=== PATIENT | female | born 1945 | race African-American/Black ===

== ENCOUNTER 2017-04-11 18:07 | Observation (INO) | payer MEDICARE ==
[2017-04-11 18:45] LABS: #Lymphocytes 1.8 thou/uL (1.20-3.40); #Monocytes 0.8 thou/uL (0.11-0.59); #Neutrophils 3.2 thou/uL (1.40-6.50); %Basophils 0.2 % (0.0-1.0); %Eosinophils 0.2 % (0.0-10.0); %Lymphocytes 31.4 % (21.0-51.0); %Monocytes 13.4 % (0.0-10.0); Hemoglobin 12.7 g/dL (12.0-16.0); Mean Corpuscular HGB CONC 31.8 g/dL (32.0-36.0); Mean Platelet Volume 7.9 fL (7.4-10.4); Platelet Count 196 thou/uL (130-400); RBC Distribution Width 12.9 % (11.5-14.5); Red Blood Cell (RBC) Count 4.56 mill/uL (4.20-5.40); White Blood Cell (WBC) Count 5.9 thou/uL (4.8-10.8)
--- NOTE | 2017-04-11 19:10 | RAD ---
CHEST TWO VIEW 04/11/17 HISTORY: Cough. COMPARISON: None. FINDINGS: Lungs are clear. No pneumothorax or effusions. The cardiac silhouette and mediastinal contours are wi thin normal limits. No osseous abnormality. IMPRESSION: No acute intrathoracic abnormality. POS: [facility]
[2017-04-11 19:16] LABS: ALT (SGPT) 77 U/L (8-55); AST (SGOT) 76 U/L (5-34); Alkaline Phosphatase 117 U/L (40-150); Anion Gap 16 mmol/L (10-20); BUN (Urea Nitrogen) 9 mg/dL (9.8-20.1); Bilirubin, Total 0.3 mg/dL (0.2-1.2); Calc. Creatinine Clearance 0 mL/min (70-130); Calcium 9.7 mg/dL (7.8-10.44); Carbon Dioxide 25 mmol/L (23-31); Chloride 101 mmol/L (98-107); Estimated GFR-MDRD 66; Globulin 3.9 g/dL (2.4-3.5); Glucose 119 mg/dL (83-110); Potassium 3.5 mmol/L (3.5-5.1); Protein, Total 7.9 g/dL (6.0-8.3); Sodium 138 mmol/L (136-145)
[2017-04-11 20:41] LABS: CKMB 0.5 ng/mL (0-6.6); Troponin I Less than 0.010 ng/mL (< 0.028)
[2017-04-11 20:43] LABS: Bilirubin Negative (Negative); Blood, Urine Small (Negative); Clarity CLOUDY (Clear); Glucose, Urine (Dipstick) Negative (Negative); Leukocyte Negative (Negative); Nitrite Negative (Negative); Protein, Urine (Dipstick) Trace mg/dL (Neg-Trace); Specific Gravity, Urine 1.021 (1.002-1.036); Urobilinogen 0.2 mg/dL (0.2-1.0)
[2017-04-11 20:44] LABS: Bacteria/HPF None Seen HPF (None Seen); Hyaline Casts/LPF 0-3 HYALINE CAST LPF (0-3 Hyaline)
[2017-04-11 20:55] LABS: WBC/HPF 0-3 HPF (0-3)
[2017-04-11] MEDS ORDERED: Ketorolac Tromethamine 30 MG/ML VIAL ONE (21:01)
[2017-04-11] MEDS ORDERED: Ondansetron HCl/PF 4 MG/2 ML Vial ONE (21:01)
[2017-04-11] MEDS ORDERED: Oseltamivir 75 MG CAP PO SCH (21:45)
[2017-04-11 23:30] VITALS: BMI 35.9
[2017-04-11] MEDS ORDERED: Ondansetron HCl/PF 4 MG/2 ML Vial IVP PRN (23:30)
[2017-04-11] MEDS ORDERED: HYDROcodone/Acetaminophen 5/325 mg Tablet PO PRN ×2 (23:30)
[2017-04-11] MEDS ORDERED: Ondansetron ODT 4 MG TAB SL PRN (23:30)
[2017-04-11] MEDS ORDERED: Acetaminophen 325 MG TAB PO PRN (23:30)
[2017-04-12] MEDS ORDERED: Acetaminophen 325 MG TAB PO PRN ×2 (03:44→08:00)
[2017-04-12] MEDS ORDERED: Sodium Chloride 0.9% 1,000 ML IV SCH (08:00)
[2017-04-12] MEDS ORDERED: Mag-Al 1200 mg/1200 mg/30 ML UDCUP PO PRN (08:00)
[2017-04-12] MEDS ORDERED: traMADol HCl 50 MG TAB PO PRN (08:00)
[2017-04-12] MEDS ORDERED: HYDROcodone/Acetaminophen 5/325 mg Tablet PO PRN (08:00)
[2017-04-12] MEDS ORDERED: Loperamide HCl 2 MG CAP PO PRN (08:00)
[2017-04-12] MEDS ORDERED: Ondansetron HCl/PF 4 MG/2 ML Vial IVP PRN (08:00)
[2017-04-12] MEDS ORDERED: Ondansetron ODT 4 MG TAB PO PRN (08:00)
[2017-04-12 08:50] VITALS: BP 123/56; TEMP 98.5
[2017-04-12] MEDS ORDERED: Oseltamivir 75 MG CAP PO SCH (09:00)
--- NOTE | 2017-04-12 12:24 | HP ---
PRIMARY CARE PHYSICIAN: Dr. Ennis. HISTORY OF PRESENT ILLNESS: Ms. Garza is a very pleasant 71-year-old female that has a history of hy pothyroidism, and hyperlipidemia. She was in her usual state of health until about 2 weeks ago. She says that she began feeling extremely weak. She noticed that she was having some pain in her right eye and she originally thought it was due to some surgery she had for her cataract. She later then s aw an ENT physician and says that she was diagnosed with a sinus infection and was placed on antibiot ics. However, she got progressively weaker, says that she was having chills, could not eat, her mout h felt like it was swollen, her throat was sore, she was having a cough, which is productive of clear sputum, also was having some nausea. As a result, she came to the hospital for evaluation. Here, s he had chest x-ray done, which was essentially negative as well as the blood work done and a flu swab , which was positive for influenza B. For this reason, she is being placed in observation. REVIEW OF SYSTEMS: Constitutional: There has been subjective fever and chills. No night sweats, no weight loss. HEENT: She has had some headache, sore throat, eye pain, no adenopathy. Pulmonary: She has had a cough, which has been productive of clear sputum, no hemoptysis. Cardiovascular: She denies any chest pain. There is no shortness of breath, no PND, no orthopnea. Gastrointestinal: Sh stephanie has had no abdominal pain, some nausea, no vomiting. She says she has chronic diarrhea. Genitouri nary: No urinary frequency, hematuria, no hesitancy. Neurologic: No focal weakness, numbness or se izures. Psychiatric: No symptoms of anxiety or depression. Skin and Integument: No skin changes. No rash. PAST MEDICAL HISTORY: Hypertension as in the patient's record, but she denies having high blood pres sure, hyperlipidemia, she has a history of anxiety, hypothyroidism, depression and irritable bowel sy ndrome. PAST SURGICAL HISTORY: She has had a knee surgery and some type of bowel surgery. SOCIAL HISTORY: She is a nonsmoker, nondrinker. She is . CODE STATUS: FULL CODE. ALLERGIES: PENICILLIN, which causes an upset stomach. FAMILY HISTORY: Significant for lung cancer. CURRENT MEDICATIONS: Include vitamin C, cholestyramine 1 packet daily, Benadryl 25 mg at bedtime, Le xapro 10 mg twice a day, estrogen 0.4 mg daily, iron 325 mg daily, flurazepam 30 mg at bedtime, levot hyroxine 100 mcg daily, lorazepam 1 mg q.i.d., multivitamins daily, K-Dur 20 mEq daily, and omega 3 f atty acids 200 mg daily, vitamin B complex daily. PHYSICAL EXAMINATION: GENERAL: She is alert and oriented. She appears to be in no acute distress. She is well-developed, well-nourished. VITAL SIGNS: Blood pressure 146/63, heart rate 96, respiratory rate of 18, temperature is 99. HEENT: Pupils are equal, round, and reactive. Extraocular muscles are intact. Sclerae are anicteri c. Throat: There is no erythema, no exudates. NECK: No adenopathy, no bruits. LUNGS: Clear to auscultation. There is no wheezing, no rales. CARDIOVASCULAR: She has a normal S1, S2. I did not appreciate an S3 or S4. No murmurs, clicks or r ubs. ABDOMEN: Soft, it is nontender, nondistended. Positive for bowel sounds. No rebound, no guarding. EXTREMITIES: There is no clubbing, cyanosis, no edema. NEUROLOGICALLY: The exam is nonfocal. LABORATORY DATA AND IMAGING: CBC: White blood cell count 5.9, hemoglobin 12.7, hematocrit is 40.1, platelet count is 196. Sodium 138, potassium 3.5, chloride is 101, CO2 is 25, BUN of 9, creatinine 1 .0, glucose is 119. Chest x-ray is negative for any acute process. Her heart size is normal and the re is no infiltrates, no effusions. ASSESSMENT AND PLAN: This is a 71-year-old female that has tested positive for influenza B. She has had a poor appetite and some nausea. She has been feeling extremely weak; however, her lab results are fairly normal, she has a normal CBC. No evidence of severe renal disease. Her chest x-ray is no rmal. There is no wheezing or rhonchi on exam. The plan will be to place her in observation, give h er some IV fluids and see if she is able to tolerate breakfast and lunch and if so, then likely she c an be transitioned to further care in the outpatient setting and continue her course of Tamiflu.
--- NOTE | 2017-04-12 23:32 | DIS ---
DATE OF ADMISSION: 04/11/2017 DATE OF DISCHARGE: 04/12/2017 PRIMARY CARE PHYSICIAN: May Ennis MD DISCHARGE DISPOSITION: Home. PRIMARY DISCHARGE DIAGNOSES: 1. Influenza B. 2. Hypertension. 3. Hypothyroidism. 4. Depression. 5. History of irritable bowel syndrome. 6. History of anxiety. DISCHARGE MEDICATIONS: Tamiflu 75 mg twice a day for 5 days, vitamin B complex 1 tablet daily, K-Dur 20 mEq daily, omega-3 fatty acids 200 mg daily, multivitamin once a day, Ativan 1 mg q.i.d., levothy roxine 100 mcg daily, guaifenesin 400 mg daily, flurazepam 30 mg at bedtime, iron sulfate 325 mg david y, conjugated estrogen 0.45 mg daily, Lexapro 10 mg twice a day, Benadryl 25 mg at bedtime, cholestyr amine 1 packet daily, vitamin C 500 mg daily. CODE STATUS: FULL CODE. ALLERGIES: PENICILLIN. HOSPITAL COURSE: Ms. Garza is a pleasant 71-year-old female who came to the emergency room due to fe eling generally weak, poor appetite, cough, and some congestion. In the ER, she was found to have in fluenza B. Chest x-ray was negative for any infiltrate or signs of pneumonia. She was placed in obs ervation and given some IV fluids. Later in the morning, she started to improve as far as her sympto ms. She had a slightly low-grade temperature of 99, but her blood pressure was stable. Lab work was also relatively stable with a normal creatinine. Sodium and potassium were normal as well as her ite blood cell count, hemoglobin, and platelet count. Given this and the fact that she was improving , she was subsequently discharged and to follow up with her primary care physician in 1-2 weeks and regine baker the course of the Tamiflu.
== END 2017-04-12 13:36 | disposition home or self-care (01) ==
LOC: ERS 18:07 → 2SW 21:22
PROVIDERS: ADMIT Internal Medicine; ATTEND Internal Medicine
DX: J10.1 Influenza due to other identified influenza virus with other respiratory manifestations (principal); I10 Essential (primary) hypertension; E03.9 Hypothyroidism, unspecified; K58.9 Irritable bowel syndrome, unspecified; F32.9 Major depressive disorder, single episode, unspecified; F41.9 Anxiety disorder, unspecified; Z88.0 Allergy status to penicillin; Z79.899 Other long term (current) drug therapy; Z98.890 Other specified postprocedural states
CPT/HCPCS: 71046; 80053; 82550; 82553; 83605; 84484; 85025; 87086; 87804 ×2; 96361 ×2; 96374; 96375; 99285; G0378; 36415; 81003; 81015; J1885; J2405

== ENCOUNTER → 2017-04-17 | Outpatient (CLI) | payer MEDICARE, OTHER | LOC: BICRAD 15:33 | PROVIDERS: ATTEND Internal Medicine | DX: R05 Cough (principal) | CPT/HCPCS: 71046 ==

== ENCOUNTER 2017-05-26 10:16 | Emergency (ER) | payer MEDICARE ==
--- NOTE | 2017-05-26 12:53 | CT ---
NONCONTRAST HEAD CT: HISTORY: Fall. Post traumatic pain. Hit a flower pot and then a flower bed. COMPARISON: 01/30/2010 TECHNIQUE: A noncontrast head CT is performed from the skull base to the skull vertex. FINDINGS: No parenchymal hemorrhage. No extraaxial hematoma. No midline shift. The basilar cisterns are patent. Brain volume is age appropriate. Cortical carrera white matter differ entiation is preserved. The ventricles and sulci are patent and symmetric. The calvarium is intact. There is adequate aeration of the sinuses and mastoid air cells. IMPRESSION: No acute intracranial process. No intracranial posttraumatic sequelae. POS: [facility]
--- NOTE | 2017-05-26 13:02 | CT ---
CT CERVICAL SPINE WITHOUT CONTRAST: INDICATION: History of fall with neck pain. FINDINGS: There is mild multilevel spondylosis of the cervical spine. No definite acute fracture or subluxatio n is evident. Craniocervical junction appears within normal limits. Prevertebral soft tissues appea r within normal limits. There is mild emphysematous change involving the lung apices. There is a 2. 3 cm hypodense lesion involving the thyroid gland. IMPRESSION: 1. No acute osseous abnormality. 2. Multilevel spondylosis of the spine. 3. A 2.3 cm hypodensity in the left thyroid gland. Recommend followup thyroid ultrasound to assess the patient's age. POS: [facility]
== END 2017-05-26 12:42 | disposition home or self-care (01) ==
LOC: ERS 10:16
DX: S09.90XA Unspecified injury of head, initial encounter (principal); E03.9 Hypothyroidism, unspecified; F41.9 Anxiety disorder, unspecified; F32.9 Major depressive disorder, single episode, unspecified; W22.8XXA Striking against or struck by other objects, initial encounter; Y93.H2 Activity, gardening and landscaping
CPT/HCPCS: 70450; 72125

== ENCOUNTER 2017-10-21 13:37 | Outpatient (CLI) | payer MEDICARE | END 2017-10-21 13:38 | disposition home or self-care (01) | LOC: BICMRI 13:37 | PROVIDERS: ATTEND Internal Medicine | DX: M54.2 Cervicalgia (principal); M25.561 Pain in right knee; M25.511 Pain in right shoulder; M47.892 Other spondylosis, cervical region; S83.241A Other tear of medial meniscus, current injury, right knee, initial encounter; M22.41 Chondromalacia patellae, right knee; M71.21 Synovial cyst of popliteal space [Baker], right knee | CPT/HCPCS: 72040 ==

== ENCOUNTER 2018-08-11 08:48 | Outpatient (CLI) | payer MEDICARE ==
--- NOTE | 2018-08-11 09:53 | MRI ---
MRI Lumbar Spine Noncontrast: HISTORY: Lumbar radiculopathy COMPARISON: 08/12/2012 FINDINGS: Conus medullaris is normal in morphology and terminates at the L1 level. Incidental note of Tarlov cyst formation. Multilevel bilateral mild to moderate degenerative facet hy pertrophy. L1-2:Disc osteophyte complex with slight effacement of ventral thecal sac L2-3:Mild central canal stenosis as result of disc osteophyte formation L3-4:Broad-based disc osteophyte results in mild narrowing of central canal L4-5:Broad-based disc osteophyte and bilateral moderate facet osteoarthritis with mild central canal stenosis. There is minimal narrowing of left neural foramen. Right neural foramen is patent L5-S1:Disc osteophyte complex with slight effacement of ventral thecal sac IMPRESSION: Mild multilevel degenerative change throughout the lumbar spine.
--- NOTE | 2018-08-11 09:54 | RAD ---
XR Lumbar Spine 2 Or 3 View: 08/11/2018 12:00 AM CLINICAL INDICATION: Lumbar radiculopathy, right-sided COMPARISON: None. FINDINGS: Fracture:No fracture. Arthropathy:There is moderate multilevel facet osteoarthritis. Mild multilevel endplate degenerative changes are present Incidental findings:Multiple surgical clips overlie the abdomen and pelvis, bilaterally. Anastomotic suture material suggested at the left abdomen, as well. Correlate with surgical history. IMPRESSION: 1. Multilevel degenerative change of the lumbar spine. Should radiculopathic symptoms persist, consid er follow-up with MRI or myelogram, as necessary. Transcribed Date/Time: 08/11/2018 10:55 AM
== END 2018-08-11 08:49 | disposition home or self-care (01) ==
LOC: BICMRI 08:48
PROVIDERS: ATTEND Internal Medicine
DX: M47.26 Other spondylosis with radiculopathy, lumbar region (principal)
CPT/HCPCS: 72100; 72148

== ENCOUNTER 2018-08-19 06:47 | Outpatient (CLI) | payer MEDICARE ==
--- NOTE | 2018-08-19 07:59 | ULT ---
US Thyroid STANDARD: 08/19/2018 12:00 AM CLINICAL INDICATION: Thyroid nodules. COMPARISON: 03/14/2017 FINDINGS: Right and left thyroid lobes are normal in size and echotexture. The right thyroid lobe measures 5.4 cm and the left thyroid lobe measures 5.4 cm. There are 2 stable solid nodules in the right thyroid lobe. The largest measures 2.2 cm in size. The nodules are well-circumscribed without suspicious calcifications. There is a predominantly cystic complex nodule in the left thyroid lobe measuring 4.6 cm in greatest dimension. No cervical lymphadenopathy is noted. IMPRESSION: Stable bilateral thyroid nodules.
--- NOTE | 2018-08-19 08:42 | MMO ---
Bilateral MAMMO Bilat Screen [facility]. CLINICAL HISTORY: Patient is 73 years old and is seen for screening. The patient has the following family history of breast cancer: maternal aunt. The patient has no personal history of cancer. VIEWS: The views performed were: bilateral craniocaudal with tomosynthesis and bilateral mediolateral oblique with tomosynthesis. FILMS COMPARED: The present examination has been compared to prior imaging studies performed at [facility] on 01/01/2011, 05/11/2012, 10/27/2014, 12/12/2015 and 12/31/2016. MAMMOGRAM FINDINGS: There are scattered fibroglandular densities. There are stable benign appearing calcifications seen in both breasts. There are no suspicious masses, suspicious calcifications, or new areas of architectural distortion. IMPRESSION: THERE IS NO MAMMOGRAPHIC EVIDENCE OF MALIGNANCY. A ROUTINE FOLLOW-UP MAMMOGRAM IN 1 YEAR IS RECOMMENDED. THE RESULTS OF THIS EXAM WERE SENT TO THE PATIENT. ACR BI-RADS Category 2 - Benign finding MAMMOGRAPHY NOTE: 1. A negative mammogram report should not delay a biopsy if a dominant of clinically suspicious mass is present. 2. Approximately 10% to 15% of breast cancers are not detected by mammography. 3. Adenosis and dense breasts may obscure an underlying neoplasm.
== END 2018-08-19 06:48 | disposition home or self-care (01) ==
LOC: BICULT 06:47
PROVIDERS: ATTEND Internal Medicine
DX: Z12.31 Encounter for screening mammogram for malignant neoplasm of breast (principal); E04.2 Nontoxic multinodular goiter; Z80.3 Family history of malignant neoplasm of breast
CPT/HCPCS: 76536; 77063; 77067

== ENCOUNTER 2018-10-08 07:54 | Emergency (ER) | payer MEDICARE ==
[2018-10-08 08:37] LABS: #Basophils 0.1 thou/uL (0.0-0.2); #Eosinphils 0.1 thou/uL (0.0-0.7); #Lymphocytes 3.2 thou/uL (1.20-3.40); #Monocytes 0.6 thou/uL (0.11-0.59); #Neutrophils 5.4 thou/uL (1.40-6.50); %Basophils 0.5 % (0.0-1.0); %Eosinophils 1.5 % (0.0-10.0); %Lymphocytes 34.2 % (21.0-51.0); %Monocytes 6.4 % (0.0-10.0); %Neutrophils 57.4 % (42.0-75.0); Hemoglobin 12.5 g/dL (12.0-16.0); Mean Corpuscular HGB CONC 32.2 g/dL (32.0-36.0); Mean Corpuscular Hemoglobin 27.8 pg (27.0-31.0); Mean Corpuscular Volume 86.4 fL (78.0-98.0); Mean Platelet Volume 8.3 fL (7.4-10.4); Platelet Count 225 thou/uL (130-400); Red Blood Cell (RBC) Count 4.51 mill/uL (4.20-5.40); White Blood Cell (WBC) Count 9.5 thou/uL (4.8-10.8)
[2018-10-08] MEDS ORDERED: Ketorolac Tromethamine 30 MG/ML VIAL ONE (08:51)
[2018-10-08] MEDS ORDERED: Methocarbamol 1 GM in Sodium Chloride 0.9% 100 ML IVPB SCH (09:00)
[2018-10-08 09:02] LABS: ALT (SGPT) 31 U/L (8-55); AST (SGOT) 32 U/L (5-34); Albumin 4.2 g/dL (3.4-4.8); Alkaline Phosphatase 89 U/L (40-150); Anion Gap 13 mmol/L (10-20); BUN (Urea Nitrogen) 12 mg/dL (9.8-20.1); Bilirubin, Total 0.3 mg/dL (0.2-1.2); Calc. Creatinine Clearance 0 mL/min (70-130); Carbon Dioxide 29 mmol/L (23-31); Chloride 104 mmol/L (98-107); Estimated GFR-MDRD 78; Globulin 3.7 g/dL (2.4-3.5); Glucose 98 mg/dL (83-110); Magnesium 2.3 mg/dL (1.6-2.6); Potassium 4.4 mmol/L (3.5-5.1); Protein, Total 7.9 g/dL (6.0-8.3); Sodium 142 mmol/L (136-145)
--- NOTE | 2018-10-08 09:53 | CT ---
CT Brain WO Con History: Pain. Comparison: CT brain 2018 Findings: No acute hemorrhage or infarct. No midline shift or mass effect. The ventricular size and e xtra-axial CSF spaces are normal. Calvarium is intact. Paranasal sinuses and mastoids are clear. Impression: No acute intracranial abnormality.
--- NOTE | 2018-10-08 10:07 | CT ---
CT Abdomen Pelvis W Con History: Abdominal pain. Comparison: None. Findings: Lung bases are clear. No pericardial effusion. Diffuse hepatic steatosis. Spleen, pancreas, adrenal glands, kidneys are unremarkable. The aortoiliac contour is nonaneurysmal. No retroperitoneal periaortic adenopathy. There are sutures at the cecum as well as the transverse colon. No dilated loops of large and small bowel. No acute osseous abnormality. Impression: No acute inflammatory process within the abdomen or pelvis.
[2018-10-08 10:50] LABS: Bilirubin Negative (Negative); Blood, Urine Negative (Negative); Clarity Clear (Clear); Glucose, Urine (Dipstick) Normal (Negative); Leukocyte Negative Leu/uL (Negative); Nitrite Negative (Negative); Protein, Urine (Dipstick) Negative (Neg-Trace); Urobilinogen Normal mg/dL (Less than 2)
[2018-10-08] MEDS ORDERED: Ondansetron ODT 4 MG TAB ONE (11:20)
--- NOTE | 2018-10-11 00:53 | EKG ---
Test Reason : Blood Pressure : / mmHG Vent. Rate : 085 BPM Atrial Rate : 085 BPM P-R Int : 152 ms QRS Dur : 082 ms QT Int : 382 ms P-R-T Axes : 065 045 040 degrees QTc Int : 454 ms Normal sinus rhythm Confirmed by JEISON FLOREZ ([id number]), image editor PERNELL NAVARRO ([id number]) on 10/11/2018 12:52:40 AM Referred By: Confirmed By:JEISON FLOREZ
== END 2018-10-08 11:28 | disposition home or self-care (01) ==
LOC: ERS 07:54
DX: R51 Headache (principal); M54.5 Low back pain; G89.29 Other chronic pain; R25.1 Tremor, unspecified; R10.9 Unspecified abdominal pain; E03.9 Hypothyroidism, unspecified; F41.9 Anxiety disorder, unspecified; F32.9 Major depressive disorder, single episode, unspecified; Z79.899 Other long term (current) drug therapy
CPT/HCPCS: 36415; 70450; 74177; 80053; 81003; 83735; 84443; 85025; 93005; 96361; 96365; 96375; J1885; J2800; J3490; Q0162

== ENCOUNTER 2018-12-08 18:13 | Observation (INO) | payer MEDICARE ==
--- NOTE | 2018-12-08 19:58 | RAD ---
Chest one view HISTORY: Chest pain. COMPARISON: 12/07/2015. FINDINGS: Cardiac silhouette is magnified by projection. Pulmonary vasculature is unremarkable. Media stinum is midline. No lobar consolidation or evidence of pneumothorax. IMPRESSION: No active cardiopulmonary abnormalities are demonstrated.
[2018-12-08 20:08] LABS: #Eosinphils 0.2 thou/uL (0.0-0.7); #Lymphocytes 3.2 thou/uL (1.20-3.40); #Monocytes 0.7 thou/uL (0.11-0.59); #Neutrophils 6.3 thou/uL (1.40-6.50); %Basophils 0.4 % (0.0-1.0); %Lymphocytes 30.8 % (21.0-51.0); %Monocytes 6.5 % (0.0-10.0); %Neutrophils 60.2 % (42.0-75.0); Mean Corpuscular HGB CONC 33.1 g/dL (32.0-36.0); Mean Corpuscular Volume 84.7 fL (78.0-98.0); Mean Platelet Volume 8.1 fL (7.4-10.4); Platelet Count 196 thou/uL (130-400); RBC Distribution Width 12.9 % (11.5-14.5); Red Blood Cell (RBC) Count 4.27 mill/uL (4.20-5.40); White Blood Cell (WBC) Count 10.5 thou/uL (4.8-10.8)
[2018-12-08] MEDS ORDERED: Lidocaine Viscous Sol 2% 15 ml UD Cup ONE (20:19)
[2018-12-08] MEDS ORDERED: Mag-Al 1200 mg/1200 mg/30 ML UDCUP ONE (20:19)
[2018-12-08] MEDS ORDERED: Pantoprazole 40 MG VIAL ONE (20:19)
[2018-12-08 20:31] LABS: ALT (SGPT) 28 U/L (8-55); AST (SGOT) 24 U/L (5-34); Alkaline Phosphatase 87 U/L (40-150); Anion Gap 9 mmol/L (10-20); BUN (Urea Nitrogen) 11 mg/dL (9.8-20.1); Bilirubin, Total 0.2 mg/dL (0.2-1.2); Calc. Creatinine Clearance 0 mL/min (70-130); Calcium 9.2 mg/dL (7.8-10.44); Carbon Dioxide 31 mmol/L (23-31); Chloride 105 mmol/L (98-107); Estimated GFR-MDRD 90; Globulin 2.9 g/dL (2.4-3.5); Glucose 93 mg/dL (83-110); Lipase 32 U/L (8-78); Potassium 3.8 mmol/L (3.5-5.1); Protein, Total 6.9 g/dL (6.0-8.3); Sodium 141 mmol/L (136-145)
[2018-12-08] MEDS ORDERED: Aspirin 325 MG TAB ONE (21:28)
[2018-12-08 23:42] LABS: Troponin I Less than 0.010 ng/mL (< 0.028)
[2018-12-09 02:51] LABS: Cardiac Risk 1.9 (Less than 4.5)
[2018-12-09 02:55] LABS: Troponin I Less than 0.010 ng/mL (< 0.028)
[2018-12-09] MEDS ORDERED: Acetaminophen 325 MG TAB PO PRN (03:10)
[2018-12-09] MEDS ORDERED: Ondansetron ODT 4 MG TAB PO PRN (07:57)
[2018-12-09] MEDS ORDERED: Nitroglycerin 0.4 MG TAB (25 Tab Bottle) PO PRN (07:57)
[2018-12-09] MEDS ORDERED: Ondansetron PF 4 MG/2 ML Vial IVP PRN (07:57)
[2018-12-09] MEDS: Lorazepam 1 MG TAB PO SCH ×3 (08:25→20:23)
[2018-12-09 08:46] LABS: Free T4 (Free Thyroxine) 0.82 ng/dL (0.70-1.48); Thyroid Stimulating Hormone 1.9511 uIU/mL (0.35-4.94)
[2018-12-09] MEDS ORDERED: ATROPINE PO SCH (09:00)
[2018-12-09] MEDS ORDERED: SCOP PO SCH (09:00)
[2018-12-09] MEDS ORDERED: Aspirin 325 MG TAB PO SCH (09:00)
[2018-12-09] MEDS ORDERED: DONNATAL PO SCH (09:00)
[2018-12-09] MEDS ORDERED: PHENOBARB PO SCH (09:00)
[2018-12-09] MEDS ORDERED: Non-Formulary Item 1 EACH (Cholestyramine (With Sugar) [Cholestyramine Packet] 1 PACKET) PO SCH (09:00)
[2018-12-09] MEDS ORDERED: HYOSCY PO SCH (09:00)
--- NOTE | 2018-12-09 11:15 | NM ---
EXAM: Nuclear medicine cardiac SPECT with EF and wall motion: HISTORY: Chest pain Protocol: Exam was performed using Lexiscan protocol. The patient is injected with28.6 millicuries of technetium 99m sestamibi intravenously for stress chad ges. The patient is injected with9.1 millicuries of technetium 99 sestamibi intravenously for resting imag es. Multiple SPECT images are performed in the short axis, vertical long axis, and horizontal long axis. FINDINGS: No scan evidence for infarct or ischemia. TID:1.24 LHR:0.32 EDV:67 mL EF:74% Wall motion:Normal IMPRESSION: No scan evidence for infarct or ischemia or other acute process
[2018-12-09] MEDS: Levothyroxine Sodium 100 MCG TAB PO SCH (11:22)
[2018-12-09] MEDS: Potassium Chloride 20 MEQ TAB PO SCH (11:22)
[2018-12-09] MEDS: Pantoprazole 40 MG VIAL IVP SCH (11:23)
[2018-12-09] MEDS: Enoxaparin Sodium 40 MG/0.4 ML SYRINGE SC SCH (11:24)
[2018-12-09] MEDS: Cholestyramine/Aspartame 4 gm Packet PO SCH ×2 (11:24→22:24)
[2018-12-09] MEDS ORDERED: ADENOSINE 60 MG/20 ML VIAL ONE (12:23)
[2018-12-09 14:16] VITALS: BMI 38.5
--- NOTE | 2018-12-09 15:02 | HP ---
PRIMARY CARE PHYSICIAN: May Ennis MD CHIEF COMPLAINT: Chest pain. HISTORY OF PRESENT ILLNESS: Ms. Garza is a 73-year-old female with past medical history of hypothyroidism, anxiety and depression, who had presented to [facility] late last night due to worsening chest pain. She states that the pain started yesterday afternoon. She states that she had gotten up and had tried to walk it off, she states that the pain was slightly improved. She states that she has also had this pain in the past and it was due to her underlying anxiety. She states that she had taken home dose of lorazepam, which actually did not help at this time. She states that this pain was worse than before. She states that she had gone to the store with a family member and had stated that the pain was quite persistent. She states that after the store, she had returned home and had laid down to take a nap. She states that when she woke up, the pain was quite worse and that is when she brought in to be seen in the ED worried. She states that she is currently under the care of a local psychiatrist, Dr. Del Angel who has been adjusting some of her home medications for her underlying anxiety and depression. She states that she used to take Lexapro, however, this would put her in an acute attack. Therefore, this was changed and her lorazepam dose was recently increased. She had denied any fever, chills, headache, blurred vision, dizziness, any palpitations or shortness of breath along with abdominal pain, nausea, or vomiting. She states that the pain is substernal and even on the left side of her chest that had radiated straight through her back, and she had actually described this as more of a pressure-like feeling. In the ED, she was given a GI cocktail, which she states did little to nothing for her. She was also given IV dose of Protonix, which did seem to help slightly. However, she is still having that pressure-like feeling in her chest. Serial troponins were drawn and found to be negative thus far x4, and her BNP was also normal at less than 10. TSH and T4 were drawn due to her history of hypothyroidism, however, these were within normal limits. Her last stress test was back in 2015, which showed no evidence of ischemia at that time and she states that she has not had any recent heart workup since. Therefore, this is ordered and pending at this time. REVIEW OF SYSTEMS: All other systems reviewed and found to be negative unless mentioned in the HPI. PAST MEDICAL HISTORY: Hypothyroidism. PAST SURGICAL HISTORY: Right knee ACL reconstruction, appendectomy, cholecystectomy, hysterectomy, and thyroidectomy. PSYCHIATRIC HISTORY: Includes anxiety and depression. SOCIAL HISTORY: The patient denies alcohol, tobacco, or illicit drug use. KNOWN ALLERGIES: Penicillins and codeine. CURRENT HOME MEDICATIONS: 1. Levothyroxine 100 mcg oral daily. 2. Lorazepam 1 mg p.o. t.i.d. 3. 16.2 mg p.o. t.i.d. 4. Potassium chloride 20 mEq p.o. daily. 5. Zolpidem 5 mg p.o. at bedtime. 6. Multivitamin 1 tablet oral daily. 7. Vitamin B complex one capsule oral daily. 8. Cholestyramine 4 g packet b.i.d. 9. Estrogen conjugated 0.4 mg p.o. daily. 10. Ascorbic acid 500 mg p.o. daily. PHYSICAL EXAMINATION: VITAL SIGNS: BP 142/62, pulse 82, respiration 18, temperature 98, O2 saturation 96% on room air. GENERAL: The patient is awake, alert, and oriented x3. She is currently sitting up in bed and in no acute distress at this time. HEENT: Atraumatic and normocephalic. Pupils are round and reactive to light. Extraocular muscles are intact. Moist mucous membranes noted. NECK: Soft and supple. Trachea is midline. CARDIOVASCULAR: Positive S1 and S2. Regular rate and rhythm. No murmur auscultated. RESPIRATORY: Clear to auscultation bilaterally. No wheezes, rales, or rhonchi. ABDOMEN: Soft and nontender. Bowel sounds present. MUSCULOSKELETAL: Strength 5+ bilaterally in upper and lower extremities. Moves all extremities equally. Pedal and radial pulses are 2+ bilaterally. No edema noted. NEUROLOGIC: Cranial nerves 2 through 12 grossly intact. No focal deficits noted. Speech intact and normal. Gait, not assessed. SKIN: Warm, dry, and intact. No rashes. No ulceration noted. PSYCHIATRIC: Good mood and affect. However, she appears to be quite anxious at times. LABORATORY DATA: WBC 10.5, RBC 4.27, hemoglobin 12.0, platelet 196. Sodium 141, potassium 3.8, anion gap 9, BUN 11, creatinine 0.76, estimated GFR 90, glucose 93, AST 24, ALT 28. Troponin less than 0.010 x4. BNP less than 10. Lipase 32. Triglycerides 93, cholesterol 87, LDL 23, HDL 43. Free T4 is 0.82, TSH 1.9511. DIAGNOSTIC IMAGING: Portable chest x-ray showed no acute cardiopulmonary abnormalities. ASSESSMENT AND PLAN: 1. Chest pain. This appears to be noncardiac in nature. However, we will order a cardiac stress test to rule out acute coronary syndrome at this time. Her serial troponins are negative x4 and BNP is normal at less than 10. 2. History of anxiety and depression. Continue home regimen at this time and monitor closely. 3. Hypothyroidism. Continue home Synthroid dose. Her T4 and TSH are actually within normal limits. 4. Deep venous thrombosis and gastrointestinal prophylaxis. 5. Code status, full code. 6. Surrogate decision maker is her spouse, Alfred. DISPOSITION: Pending further workup and clinical findings, the patient will likely be discharged home in the next 1 to 2 days. Job ID: [id number]
[2018-12-09] MEDS ORDERED: Lidocaine 2% Viscous Solution 10 ML, Aluminum & Magnesium Hydroxide 30 ML SSW SCH (15:30)
[2018-12-09] MEDS ORDERED: Zolpidem Tartrate 5 MG TAB PO SCH (21:00)
[2018-12-10] MEDS: Levothyroxine Sodium 100 MCG TAB PO SCH (06:37)
[2018-12-10 08:19] VITALS: BP 130/66; TEMP 98.3
[2018-12-10] MEDS: Lorazepam 1 MG TAB PO SCH (09:11)
[2018-12-10] MEDS: Enoxaparin Sodium 40 MG/0.4 ML SYRINGE SC SCH (09:11)
[2018-12-10] MEDS: Pantoprazole 40 MG VIAL IVP SCH (09:12)
[2018-12-10] MEDS: Potassium Chloride 20 MEQ TAB PO SCH (09:12)
[2018-12-10] MEDS: Cholestyramine/Aspartame 4 gm Packet PO SCH (09:12)
[2018-12-10 10:10] LABS: #Eosinphils 0.1 thou/uL (0.0-0.7); #Lymphocytes 4.6 thou/uL (1.20-3.40); #Monocytes 0.6 thou/uL (0.11-0.59); #Neutrophils 5.6 thou/uL (1.40-6.50); %Basophils 0.4 % (0.0-1.0); %Eosinophils 1.3 % (0.0-10.0); %Lymphocytes 41.8 % (21.0-51.0); %Monocytes 5.9 % (0.0-10.0); %Neutrophils 50.7 % (42.0-75.0); Hemoglobin 13.1 g/dL (12.0-16.0); Mean Corpuscular HGB CONC 32.5 g/dL (32.0-36.0); Mean Corpuscular Hemoglobin 27.4 pg (27.0-31.0); Mean Corpuscular Volume 84.3 fL (78.0-98.0); Mean Platelet Volume 8.1 fL (7.4-10.4); Platelet Count 253 thou/uL (130-400); RBC Distribution Width 12.8 % (11.5-14.5); Red Blood Cell (RBC) Count 4.78 mill/uL (4.20-5.40)
[2018-12-10 10:30] LABS: Anion Gap 13 mmol/L (10-20); BUN (Urea Nitrogen) 11 mg/dL (9.8-20.1); Calc. Creatinine Clearance 93 mL/min (70-130); Calcium 9.7 mg/dL (7.8-10.44); Carbon Dioxide 26 mmol/L (23-31); Chloride 103 mmol/L (98-107); Estimated GFR-MDRD 84; Glucose 110 mg/dL (83-110); Potassium 3.6 mmol/L (3.5-5.1); Sodium 138 mmol/L (136-145)
--- NOTE | 2018-12-11 11:05 | SS ---
DATE OF ADMISSION: 12/08/2018 DATE OF DISCHARGE: 12/10/2018 HOSPITAL COURSE: This patient was admitted on 12/09/2018 for chest pain that started the day before her presentation to the emergency room. She tried to get up and walk it off unsuccessfully, and since the pain persistent, she presented to our emergency room, she ruled out by cardiac enzymes and underwent a nuclear study that was negative for heart disease. Today, she feels very well and ready to go home. During the night, she did have some discomfort, but this was relieved by giving her a Triple Mix. The patient will be discharged home today to follow the primary care physician in a couple of weeks. She is to resume her home medications. PHYSICAL EXAMINATION: GENERAL: She is awake, alert, and oriented, does not appear in stress. VITAL SIGNS: Her blood pressure is 130/66, heart rate of 87, temperature is 98.3, and saturating 96% on room. HEENT: Nontraumatic, normocephalic. Pupils are equally reactive. Extraocular movements are intact. Nonicteric sclerae. Well injected conjunctivae. Oral mucosa is normal. Nasal mucosa is normal. NECK: Supple. No adenopathy. No mass. Thyroid is not palpable. Trachea is midline. No supraclavicular lymphadenopathy. HEART: S1 and S2. Regular. No murmurs. No gallops. No frictional rubs. No displacement of PMI. LUNGS: Clear to auscultation bilaterally. No wheezes, rhonchi, or crackles. ABDOMEN: Bowel sounds are positive. Nontender abdomen. No hepatosplenomegaly. EXTREMITIES: No lower extremity edema. No cyanosis. NEUROLOGIC: Cranial nerves 2 through 12 within normal limits. Normal motor function. Normal sensory function and reflexes. LABORATORY DATA: Blood work shows a WBC of 11, hemoglobin of 13.1, platelets . Sodium of 138, potassium 3.6, creatinine 0.8. Troponin less than 0.01. ASSESSMENT AND PLAN: This is a 73-year-old female patient who had an episode of chest pain that persisted, but her nuclear study was negative for cardiac ischemia. Her chest pain is noncardiac, most likely it is gastrointestinal related. Since she did improve with a Triple Mix, and she is on Protonix at home, the patient to resume her medication. More than 30 minutes was spent to discharge this patient. Job ID: [id number]
== END 2018-12-10 12:22 | disposition home or self-care (01) ==
LOC: ERS 18:13 → 2SW 23:56
PROVIDERS: ADMIT Hospitalist; ATTEND Hospitalist
DX: R07.9 Chest pain, unspecified (principal); E03.9 Hypothyroidism, unspecified; F41.8 Other specified anxiety disorders; F32.9 Major depressive disorder, single episode, unspecified; Z88.0 Allergy status to penicillin; Z88.5 Allergy status to narcotic agent; Z79.899 Other long term (current) drug therapy
CPT/HCPCS: 71045; 78452; 80048; 80053; 80061; 83690; 83880; 84439; 84443; 84484 ×3; 85025 ×2; 93005; 93017; 96374; 97139; 99285; A9500; G0378 ×3; 36415; C9113; J0153; J1650

== ENCOUNTER 2018-12-30 09:40 | Outpatient (CLI) | payer MEDICARE ==
--- NOTE | 2018-12-30 11:00 | MRI ---
Brain MRI without contrast: 12/30/2018 COMPARISON: None HISTORY: Right hand and right arm tremors TECHNIQUE: Multiplanar multisequence MR imaging of the brain obtained without contrast FINDINGS: The diffusion weighted imaging demonstrates no evidence for acute infarction. The axial gradient echo imaging demonstrates no evidence for intracranial hemorrhage. The imaged paranasal sinuses and mastoid air cells appear unremarkable. Arterial flow voids at the axial level of the skull base appear unremarkable on the T2-weighted imagi ng. No midline shift or mass effect is seen. No ventricular enlargement is noted. There are a few subcentimeter scattered foci of increased T2 and FLAIR signal within the periventricu lar and deep white matter. Regional bone marrow signal intensity appears within normal limits. The parotid gland is mildly prominent for a patient of this age, measuring 7-8 mm in craniocaudal dim ension, demonstrating a superior convex configuration. If there are symptoms referable to the pituitary gland, a follow-up MRI with and without contrast utilizing a pituitary mass protocol is sug gested. IMPRESSION: Mild prominence of the pituitary gland as detailed above. No evidence for acute infarctio n or intracranial hemorrhage. Mild small vessel disease. Transcribed Date/Time: 12/30/2018 12:46 PM
== END 2018-12-30 09:41 | disposition home or self-care (01) ==
LOC: BICMRI 09:40
PROVIDERS: ATTEND Physician Assistant
DX: H53.8 Other visual disturbances (principal); R51 Headache; R42 Dizziness and giddiness; G93.89 Other specified disorders of brain
CPT/HCPCS: 70551

== ENCOUNTER 2019-01-04 21:16 | Emergency (ER) | payer MEDICARE ==
[2019-01-04 21:57] LABS: #Eosinphils 0.3 thou/uL (0.0-0.7); #Monocytes 0.9 thou/uL (0.11-0.59); #Neutrophils 8.5 thou/uL (1.40-6.50); %Basophils 0.3 % (0.0-1.0); %Eosinophils 1.9 % (0.0-10.0); %Lymphocytes 29.3 % (21.0-51.0); %Monocytes 6.3 % (0.0-10.0); %Neutrophils 62.2 % (42.0-75.0); Hemoglobin 12.6 g/dL (12.0-16.0); Mean Corpuscular HGB CONC 32.5 g/dL (32.0-36.0); Mean Corpuscular Hemoglobin 27.6 pg (27.0-31.0); Platelet Count 240 thou/uL (130-400); RBC Distribution Width 12.8 % (11.5-14.5); Red Blood Cell (RBC) Count 4.57 mill/uL (4.20-5.40); White Blood Cell (WBC) Count 13.6 thou/uL (4.8-10.8)
[2019-01-04 22:02] LABS: ALT (SGPT) 28 U/L (8-55); AST (SGOT) 26 U/L (5-34); Albumin 4.1 g/dL (3.4-4.8); Alkaline Phosphatase 109 U/L (40-110); Anion Gap 12 mmol/L (10-20); BUN (Urea Nitrogen) 10 mg/dL (9.8-20.1); Bilirubin, Total Less than 0.2 mg/dL (0.2-1.2); Calc. Creatinine Clearance 0 mL/min (70-130); Calcium 9.3 mg/dL (7.8-10.44); Carbon Dioxide 25 mmol/L (23-31); Chloride 105 mmol/L (98-107); Estimated GFR-MDRD 89; Globulin 3.7 g/dL (2.4-3.5); Glucose 104 mg/dL (83-110); Potassium 3.4 mmol/L (3.5-5.1); Protein, Total 7.8 g/dL (6.0-8.3); Sodium 139 mmol/L (136-145)
[2019-01-04 22:29] LABS: CK (CPK) 72 U/L (29-168); Lipase 36 U/L (8-78)
--- NOTE | 2019-01-04 23:05 | RAD ---
RADIOGRAPH CHEST 1 VIEW: DATE: 01/04/2019 HISTORY: 73-year-old female with chest pain FINDINGS: There are no airspace densities, pulmonary edema, pneumothorax, or cardiomegaly. IMPRESSION: No acute cardiopulmonary findings.
[2019-01-04] MEDS ORDERED: Lorazepam 2 MG/ML VIAL ONE (23:13)
[2019-01-04 23:36] LABS: Troponin I 0.013 ng/mL (< 0.028)
--- NOTE | 2019-01-08 15:26 | EKG ---
Test Reason : Blood Pressure : / mmHG Vent. Rate : 086 BPM Atrial Rate : 084 BPM P-R Int : 000 ms QRS Dur : 094 ms QT Int : 372 ms P-R-T Axes : 000 044 019 degrees QTc Int : 445 ms Normal sinus rhythm Confirmed by CASS TELLEZ, MILAGRO ([id number]), publishing editor PERNELL NAVARRO ([id number]) on 01/08/2019 3:25:55 PM Referred By: Confirmed By:MILAGRO ODELL MD
== END 2019-01-04 23:54 | disposition home or self-care (01) ==
LOC: ERS 21:16
DX: F41.9 Anxiety disorder, unspecified (principal); E03.9 Hypothyroidism, unspecified; F32.9 Major depressive disorder, single episode, unspecified; Z79.899 Other long term (current) drug therapy
CPT/HCPCS: 36416; 71045; 80053; 82550; 83690; 83880; 84484; 85025; 93005; 96372; J2060

== ENCOUNTER 2019-01-21 08:27 | Outpatient (CLI) | payer MEDICARE ==
--- NOTE | 2019-01-21 14:04 | NM ---
NUCLEAR MEDICINE BRAIN IMAGING HISTORY: Tremors COMPARISON: None TECHNIQUE: A nuclear medicine tomographic scan was performed using 4.5 mCi of I-123 Ioflupane. FINDINGS: There is comma shaped uptake uptake of the radiopharmaceutical in both basal ganglia. IMPRESSION: Normal exam.
== END 2019-01-21 08:28 | disposition home or self-care (01) ==
LOC: NM 08:27
PROVIDERS: ATTEND Psychiatry & Neurology Neurology
DX: R25.1 Tremor, unspecified (principal)
CPT/HCPCS: 78607; A9584

== ENCOUNTER 2019-02-18 12:14 | Outpatient (CLI) | payer MEDICARE ==
--- NOTE | 2019-02-18 13:53 | MRI ---
BRAIN MRI WITH AND WITHOUT CONTRAST: HISTORY: Pituitary gland enlargement. Headaches. COMPARISON: 12/30/2018. FINDINGS: Hemorrhage: No hemorrhage. Calvarium: Appropriate T1 marrow signal intensity. Midline brain parenchyma: Unremarkable, Cerebrum:No parenchymal mass, mass effect or midline shift. Brain volume is age-appropriate. Cortical carrera-white matter differentiation is preserved. No significant T2 or FLAIR white matter hyperintensities. Ventricles: No evidence of hydrocephalus. Sinuses and mastoid air cells: Adequate aeration. Diffusion: Central arterial flow is maintained. Absent restricted diffusion. Postcontrast images: No pathologic enhancement of the brain parenchyma. Pituitary MRI: There is a T1 hypointense, T2 isointense focus along the left aspect of the sella. Postcontrast image s demonstrate delayed focus of heterogeneous enhancement. This lesion measures 0.9 cm mediolateral by 0.9 cm anterior-posterior by 0.9 cm cranial caudal. Pituitary adenoma is favored. No significant m ass effect or deviation of the pituitary stalk. No significant mass effect upon the optic chiasm or prechiasmatic optic nerves. Flow voids of the cavernous carotid arteries are maintained. 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 Neurosurgical consultation is recommended. Transcribed Date/Time: 02/18/2019 1:56 PM
[2019-02-18] MEDS ORDERED: Magnevist 469MG/ML 20 ML VIAL ONE (15:37)
== END 2019-02-18 12:15 | disposition home or self-care (01) ==
LOC: BICMRI 12:14
PROVIDERS: ATTEND Internal Medicine
DX: E23.6 Other disorders of pituitary gland (principal)
CPT/HCPCS: 70553; 82565; A9579

== ENCOUNTER 2019-12-21 08:18 | Outpatient (CLI) | payer MEDICARE ==
--- NOTE | 2019-12-21 09:49 | MRI ---
BRAIN MRI WITH AND WITHOUT CONTRAST: HISTORY: Follow-up pituitary tumor. No new symptoms. COMPARISON: 12/30/2018, 02/18/2019. FINDINGS: Brain MRI: Hemorrhage: No parenchymal hemorrhage or extra-axial hematoma. Calvarium: Appropriate T1 marrow signal intensity. Midline brain parenchyma: Unremarkable. Cerebrum:No parenchymal mass, mass effect or midline shift. Brain volume, age-appropriate. Cortical g ray-white white matter differentiation is preserved. T2 and FLAIR white matter hyperintensities are minimal and felt to be due to chronic small vessel change. Ventricles: No evidence of hydrocephalus. Sinuses and mastoid air cells: Adequate aeration Diffusion: Central arterial flow is maintained. Absent restricted diffusion. Postcontrast images: No pathologic enhancement of the brain parenchyma. Pituitary MRI: Redemonstration of a T2 isointense focus with associated heterogeneous enhancement that occupies the left aspect of the pituitary gland. Currently, this mass measures 1.1 cm x 0.6 x 0.9 cm. There is minimal convexity. There is mass effect upon the left optic chiasm and prechiasmatic optic nerve. The adjacent carotid flow void is maintained. There is no significant deviation of the pituitary stalk. Previously, this mass measured 0.6 x 0.9 x 0.8 cm. The degree of mass effect upon the left opt ic nerve has developed sine the previous exam. IMPRESSION: Slight interval increase in size of a left sellar mass, compatible with macroadenoma. There is some m ass effect upon the left optic chiasm and prechiasmatic optic nerve. Correlate with ophthalmologic evaluation. Transcribed Date/Time: 12/21/2019 10:08 AM
[2019-12-21] MEDS ORDERED: Magnevist 469MG/ML 20 ML VIAL ONE (15:10)
== END 2019-12-21 08:19 | disposition home or self-care (01) ==
LOC: BICMRI 08:18
PROVIDERS: ATTEND Neurological Surgery
DX: D35.2 Benign neoplasm of pituitary gland (principal); G93.89 Other specified disorders of brain
CPT/HCPCS: 70553; 82565; A9579

== ENCOUNTER 2019-12-30 13:45 | Inpatient (IN) | payer MEDICARE, OTHER ==
[2019-12-30 14:25] LABS: #Basophils 0.1 thou/uL (0.0-0.2); #Eosinphils 0.1 thou/uL (0.0-0.7); #Lymphocytes 3.6 thou/uL (1.20-3.40); #Monocytes 0.5 thou/uL (0.11-0.59); #Neutrophils 5.3 thou/uL (1.40-6.50); %Eosinophils 1.3 % (0.0-10.0); %Lymphocytes 37.5 % (21.0-51.0); %Monocytes 5.5 % (0.0-10.0); %Neutrophils 54.8 % (42.0-75.0); Hemoglobin 13.3 g/dL (12.0-16.0); Mean Corpuscular HGB CONC 31.5 g/dL (32.0-36.0); Mean Corpuscular Hemoglobin 27.1 pg (27.0-31.0); Mean Platelet Volume 8.2 fL (7.4-10.4); Platelet Count 222 thou/uL (130-400); RBC Distribution Width 12.9 % (11.5-14.5); Red Blood Cell (RBC) Count 4.91 mill/uL (4.20-5.40); White Blood Cell (WBC) Count 9.6 thou/uL (4.8-10.8)
[2019-12-30 14:26] LABS: Bilirubin Negative (Negative); Blood, Urine Negative (Negative); Clarity Clear (Clear); Glucose, Urine (Dipstick) Normal (Negative); Ketone, Urine Negative (Negative); Leukocyte Negative Leu/uL (Negative); Nitrite Negative (Negative); Protein, Urine (Dipstick) Negative (Neg-Trace); Specific Gravity, Urine 1.003 (1.002-1.036); Urobilinogen Normal mg/dL (Less than 2); pH, Urine 6.5 (5.0-9.0)
--- NOTE | 2019-12-30 14:35 | RAD ---
XR Chest 1 View Portable HISTORY: Chest pain COMPARISON: 01/04/2019 FINDINGS: The heart size is normal. The lungs are well expanded without focal areas of consolidation, pneumothorax or pleural effusions. IMPRESSION: No radiographic evidence of acute cardiopulmonary process.
[2019-12-30] MEDS ORDERED: Acetaminophen 500 MG TAB ONE (14:44)
[2019-12-30] MEDS ORDERED: Nitroglycerin 2% Ointment 1 INCH/1 GM Packet ONE (14:44)
[2019-12-30 14:45] LABS: ALT (SGPT) 35 U/L (8-55); AST (SGOT) 32 U/L (5-34); Albumin 4.7 g/dL (3.4-4.8); Alkaline Phosphatase 101 U/L (40-110); Anion Gap 13 mmol/L (10-20); BUN (Urea Nitrogen) 9 mg/dL (9.8-20.1); Bilirubin, Total 0.2 mg/dL (0.2-1.2); Calc. Creatinine Clearance 0 mL/min (70-130); Calcium 9.9 mg/dL (7.8-10.44); Carbon Dioxide 29 mmol/L (23-31); Chloride 104 mmol/L (98-107); Estimated GFR-MDRD 86; Globulin 3.5 g/dL (2.4-3.5); Glucose 90 mg/dL (83-110); Lipase 29 U/L (8-78); Magnesium 2.1 mg/dL (1.6-2.6); Potassium 3.8 mmol/L (3.5-5.1); Protein, Total 8.2 g/dL (6.0-8.3); Sodium 142 mmol/L (136-145)
--- NOTE | 2019-12-30 15:19 | CT ---
CT of thebrain: 12/30/2019 COMPARISON:10/08/2018 HISTORY:Bilateral lower extremity weakness, severe hypertension TECHNIQUE: Serial axial CT imaging at5 mm intervals from thevertex through skull base without contras t. Findings:The visualized paranasal sinuses and mastoid air cells are well-aerated. No displaced calvar ial fracture, intracranial hemorrhage, midline shift, or mass effect. Impression:No acute findings.
--- NOTE | 2019-12-30 15:30 | PDOC.FPRHP ---
- History of Present Illness Chief Complaint: Lower extremity weakness bilaterally History of Present Illness: Patient is a 74 year old female with a history of HTN, hypothyroidism, anxiety, depression and hiatal hernia who presents to the ED with complaints of bilateral lower extremity weakness for 3 weeks. The patient denies falls or recent trauma. She reports the weakness began shortly after her synthroid medication was adjusted. She denies dizziness, lightheadedness, syncope, decreased sensation, alteration in gait, numbness, tingling, and incontinence. She also complains of a right frontal headache located above the eye described as pressure and "popping" that was progressively worsened over the past 2 weeks. During this time, she has also experienced blurry vision, intermittent chills, intermittent nausea, and mild anxiety. She notes neck pain radiation to the right shoulder related to neck tightness. She also complains of right arm pain and "heavy feeling" without erythema or tenderness. The patient reports chest pain radiating to the right shoulder and back. The patient describes the chest pain a s "tight and pokey" and notes it feels sore. She states the pain began yesterday but resolved after receiving nitro in the ED. The patient says she initially attributed her symptoms to allergies 2 weeks ago but notes symptoms did not improve as usual after starting daily nasal steroid. She denies runny nose, cough, congestion, and SOB in the past month. ED Course: In the ED, BP initially 199/133. Patient received Nitro-bid and Tylenol 1g with resolution of chest pain. BP improved to 140s/80s systolic. No tachycardia or tachypnea noted. - Allergies/Adverse Reactions Allergies Allergy/AdvReac Type Severity Reaction Status Date / Time codeine Allergy Verified 12/30/19 18:34 Penicillins Allergy Verified 12/30/19 18:34 - Home Medications Medication Instructions Recorded Confirmed Type Cholestyramine (With Sugar) 1 packet PO BID 12/07/15 12/30/19 History [Cholestyramine Packet] Lorazepam [Ativan] 0.5 mg PO PRN PRN 12/07/15 12/30/19 History Phenobarb/Hyoscy/Atropine/Scop 16.2 mg PO TID 12/07/15 12/30/19 History [ Tablet] Potassium Chloride [K-Dur] 20 meq PO DAILY 12/07/15 12/30/19 History Ascorbic Acid [Vitamin C] 500 mg PO DAILY 04/11/17 12/30/19 History Multivitamin [Daily Value] 1 tablet PO DAILY 04/11/17 12/30/19 History Vitamin B Complex 1 cap PO DAILY 04/11/17 12/30/19 History Estrogens, Conjugated [Premarin] 0.45 mg PO DAILY 12/30/19 12/30/19 History LORazepam [Lorazepam] 2 mg PO HS 12/30/19 12/30/19 History Levothyroxine Sodium [Synthroid] 1 tab PO DAILY 12/30/19 12/30/19 History - History PMHx: Hypothyroidism, anxiety, depression, hiatal hernia. Reports hx of HTN treated 20 years ago for 5 years PSHx: Appendectomy, R knee ACL, cholecystectomy, hysterectomy, thyroidectomy, partial colectomy FHx: Mother - HTN, thoracic aortic aneurysm. Father - HTN Social: Lives at home. Denies history of tobacco use. Denies ETOH and drug use. - Review of Systems General: reports: fatigue. denies: fever/chills, night sweats Eyes: denies: eye pain, vision changes ENT: denies: nasal congestion, rhinorrhea Respiratory: denies: cough, congestion, shortness of breath Cardiovascular: denies: chest pain, palpitation, edema Gastrointestinal: reports: diarrhea (chronic since partial colectomy). denies: nausea, vomiting, abdominal pain Genitourinary: reports: other (Chronic urge incontinence). denies: dysuria, polyuria Skin: denies: rashes, jaundice Musculoskeletal: reports: pain (Right arm pain). denies: tenderness, stiffness, swelling Neurological: reports: weakness. denies: numbness, syncope, seizure Psychological: reports: anxiety. denies: depression - Vital signs BP: [148/81] HR: [79] RR: [19] Tmax: [98] Pox: [100]% on [RA] Wt: [86.18kg] - Physical Exam Constitutional: NAD, awake, alert and oriented HEENT: normocephalic and atraumatic, conjunctiva clear, grossly normal vision, MMM Neck: supple, FROM, trachea midline Chest: no-tender to palpation, no lesions Heart: RRR, normal S1/S2, no murmurs/rubs/gallops, no edema Lungs: CTAB, no respiratory distress, good air movement Abdomen: soft, non-tender, bowel sounds present Musculoskeletal: normal structure, normal tone, ROM grossly normal Neurological: no focal deficit, CN II-XII intact, normal sensation, DTRs 2+ -Neurological: Strength 5/5 in all extremities, appropriate for age Skin: no rash/lesions, no jaundice Heme/Lymphatic: no unusual bruising or bleeding Psychiatric: normal mood and affect FMR H&P: Results - Labs Result Diagrams: 12/30/19 14:14 12/30/19 14:14 Lab results: WBC 9.6 thou/uL (4.8-10.8) 12/30/19 14:14 Hgb 13.3 g/dL (12.0-16.0) 12/30/19 14:14 Hct 42.2 % (36.0-47.0) 12/30/19 14:14 MCV 86.0 fL (78.0-98.0) 12/30/19 14:14 Plt Count 222 thou/uL (130-400) 12/30/19 14:14 Neutrophils % 54.8 % (42.0-75.0) 12/30/19 14:14 Sodium 142 mmol/L (136-145) 12/30/19 14:14 Potassium 3.8 mmol/L (3.5-5.1) 12/30/19 14:14 Chloride 104 mmol/L (98-107) 12/30/19 14:14 Carbon Dioxide 29 mmol/L (23-31) 12/30/19 14:14 BUN 9 mg/dL (9.8-20.1) L 12/30/19 14:14 Creatinine 0.79 mg/dL (0.6-1.1) 12/30/19 14:14 Glucose 90 mg/dL (83-110) 12/30/19 14:14 Calcium 9.9 mg/dL (7.8-10.44) 12/30/19 14:14 Total Bilirubin 0.2 mg/dL (0.2-1.2) 12/30/19 14:14 AST 32 U/L (5-34) 12/30/19 14:14 ALT 35 U/L (8-55) 12/30/19 14:14 Alkaline Phosphatase 101 U/L (40-110) 12/30/19 14:14 B-Natriuretic Peptide Less than 10.0 pg/mL (0-100) 12/30/19 14:14 Serum Total Protein 8.2 g/dL (6.0-8.3) 12/30/19 14:14 Albumin 4.7 g/dL (3.4-4.8) 12/30/19 14:14 Lipase 29 U/L (8-78) 12/30/19 14:14 Urine Ketones Negative mg/dL (Negative) 12/30/19 14:05 Urine Blood Negative (Negative) 12/30/19 14:05 Urine Nitrite Negative (Negative) 12/30/19 14:05 Ur Leukocyte Esterase Negative Aileen/uL (Negative) 12/30/19 14:05 - EKG Interpretation EKG: HR 76, NSR FMR H&P: A/P - Plan Hypertensive urgency BP elevated at 199/133 in ED, improved to 148/81 by admission. Vital signs otherwise stable. Reports hx HTN in past but has not been treated for 15 years. Daily headache and vision changes likely due to untreated chronic HTN. No evidence of end organ damage in workup. Trop neg. EKG NSR. BNP <10. -Admit to tele obs -TSH, A1C, lipid panel for risk stratification -Start amlodipine 10mg daily -Terazosin 1mg Q4H PRN for systolic BP > 160 -Stress test in am to further investigate. NPO at midnight Bilateral lower extremity weakness Reports generalized leg weakness for past 3 weeks. Exam normal and appropriate for age. CT Brain showed nothing acute. -CRP, ESR to rule out inflammatory process -CT C Spine and L spine for further investigation -PT/OT consult Right arm pain Reports R arm pain and feelings of heaviness without erythema or warmth in recent weeks. Increased risk of clots due to longstanding hx of PO estrogen therapy. -US Venous Doppler to rule out DVT -On Lovenox inpatient for DVT ppx Hypothyroidism s/p thyroidectomy Patient reports recent change in Synthroid dosing, specifics unknown. -TSH level -Continue home Synthroid Anxiety Patient reports mild anxiety at baseline. PDMP confirmed current dosing. -Continue home Lorazepam 0.5mg in morning and afternoon -Continue home Lorazepam 2g at night Depression Patient reports chronic history of MDD with intermittent need for medication. -Monitor for symptoms Chronic estrogen therapy Patient reports an estimated 20 year history of taking post-menopausal PO estrogen therapy. Denies family hx breast cancer. -Begin taper of Premarin 0.45mg daily given high risk of complications with assisted use Chronic diarrhea 2/2 partial colectomy -Continue home KCl 20mg daily Hiatal Hernia -Aware PCP: Dr. Saad Ghotra at [facility] Code: FULL DVT Ppx: Lovenox Dispo: Admit to inpatient tele. Expected LOS 1-2 days. FMR H&P: Upper Level - Plan Date/Time: 12/30/19 1530 IJayy, DO, have evaluated this patient and agree with findings/plan as outlined by music internship resident. Pertinent changes/additions are listed here. This is a 74 yo female with a pmh of HTN, HLD, anxiety, hypothyroidism, depression, IBS, who presents to the ER with a cc of lower extremity weakness and chest pressure. She states the weakness has been on going for the last three weeks and is not associated with dizziness, presyncope, or falling. The weakness is intermittent and is worse with walking. She reports that nothing makes it better. The chest pain has socrates going on for the last day and is as sociated with right arm pain and mild SOB. She states the pain starts in her neck and moves to her back. She believes it has something to do with her tension in her neck. She is on intermediate manager estrogen supplementation, no history of breast cancer. She also reports blurry vision for the last month with a headache on the right side that comes and goes. She denies a family history of breast cancer She was initially found to have SBP in the 200s but this responded well to nitroglycerin and is currently 148/81 Objective Vitals: BP 148/81, HR 79, RR 19, Temp 98.1, SpO2 100 General: NAD HEENT: MMM, AT/NC, no temporal tenderness Cardio: RRR, no murmurs, no tenderness to palpation Respiratory: CTAB, no adventitious sounds Abdominal: Soft, non-tender, BS+ MSK: Lower extremity 4-5/5 bilaterally, Upper extremity strength 5/5 Extremities: Pulses 2+ throughout Neuro: CN II-XII grossly intact, DTR 2/4 throughout, pronator drift is neg, normal proprioception A/P Hypertensive urgency -Admit to tele obs -BP initially severely elevated but no signs of end organ damage -Pt denies hx of HTN, however, we will start on amlodipine with Hytrin for PRN -Trop neg -CXR neg -Low suspicion for PE or aortic dissection based on Hx and exam -Plan for stress test in the morning Lower extremity weakness -Likely not Guillain Gaastra as it has been stable -Will obtain CT C spine and L spine -Pending CRP and ESR to check for inflammatory processes -CT brain is negative Right arm pain/heaviness -Pt is on assisted estrogen therapy -Will obtain US of arm to r/o DVT Hypothyroidism -Will check TSH -Continue home levothyroxine HLD -Continue home statin Anxiety -Pt is currently on lorazepam 0.5mg in the morning and in the afternoon, and then 2 mg in the evening. RAIL OPERATOR aware is appropriate Please see music internship note for further information and management of chronic conditions Code: Full Prophylaxis: Lovenox Family: none at bedside Fluids: SL Diet: Regular Disposition: DC in 1-2 days PCP: [facility] Addendum - Attending - Attending Attestation Date/Time: 12/31/19 4568 I personally evaluated the patient and discussed the management with Dr. Ronny Vargas yesterday evening. I agree with the History, Examination, Assessment and Plan documented above with any addition or exceptions noted below.
[2019-12-30] MEDS ORDERED: Ondansetron ODT 4 MG TAB PO PRN (16:28)
[2019-12-30] MEDS ORDERED: Ondansetron PF 4 MG/2 ML Vial IVP PRN (16:28)
[2019-12-30] MEDS ORDERED: Labetalol HCl 100 MG/20 ML VIAL SLOW IVP PRN ×2 (16:39→16:51)
[2019-12-30] MEDS ORDERED: Nitroglycerin 0.4 MG TAB (25 Tab Bottle) SL PRN (16:41)
[2019-12-30] MEDS ORDERED: Terazosin HCl 1 MG CAP PO PRN (17:27)
[2019-12-30] MEDS ORDERED: Amlodipine 10 MG TAB PO SCH (17:30)
--- NOTE | 2019-12-30 17:57 | CT ---
CT CERVICAL SPINE 12/30/19 PROVIDED CLINICAL HISTORY: Neck pain and bilateral lower extremity weakness. FINDINGS: Comparison 05/26/17. There is no evidence for fracture or traumatic subluxation. Cervical disc degenerative changes are re demonstrated, as are lower cervical and visualized thoracic facet degenerative change. There is no pr evertebral soft tissue swelling apparent. Thyroid goiter changes are redemonstrated. The visualized l marisa apices appear clear. There is no high grade central canal stenosis apparent by CT. IMPRESSION: No CT evidence for an acute process. POS: CYNTHIA
--- NOTE | 2019-12-30 18:00 | CT ---
CT LUMBAR SPINE: 12/30/19 PROVIDED CLINICAL HISTORY: Lower extremity weakness. FINDINGS: Lumbar alignment appears normal. Vertebral body heights appear preserved. There is no evidence for fr acture. Lower lumbar spine facet arthritis changes are seen. There is no evidence for high grade cent ral canal stenosis by CT. IMPRESSION: No CT evidence for an acute abnormality. POS: CYNTHIA
[2019-12-30 18:46] LABS: Hemoglobin A1c 5.4 % (4.0-6.0)
[2019-12-30] MEDS: Acetaminophen 325 MG TAB PO PRN (20:13)
[2019-12-30] MEDS: Lorazepam 1 MG TAB PO SCH (20:13)
--- NOTE | 2019-12-30 20:51 | ULT ---
RIGHT UPPER EXTREMITY VENOUS DOPPLER ULTRASOUND: 12/30/19 COMPARISON: None. HISTORY: Right arm pain, assess for DVT. TECHNIQUE: Multiplanar carrera scale sonographic imaging of the venous structures of the right upper extremity obta ined with color flow/spectral analysis/Doppler interrogation. FINDINGS: The right internal jugular vein, subclavian vein, axillary vein, brachial vein, basilic vein, cephali c vein, radial vein, and ulnar vein are patent. Deep venous structures of the right upper extremity d emonstrate normal blood flow, augmentation and compression. No evidence for DVT. IMPRESSION: No evidence for deep venous thrombosis of the right upper extremity. POS: RAMANA
[2019-12-30] MEDS: Simethicone Chewable 80 MG TAB PO PRN (21:55)
[2019-12-31] MEDS ORDERED: Sodium Chloride 0.9% 500 ML IV SCH (00:45)
[2019-12-31 05:03] VITALS: BMI 34.7
[2019-12-31 05:04] LABS: Cardiac Risk 1.9 (Less than 4.5)
[2019-12-31] MEDS: Levothyroxine Sodium 88 MCG TAB PO SCH (05:35)
[2019-12-31] MEDS: Acetaminophen 325 MG TAB PO PRN ×2 (05:38→16:59)
--- NOTE | 2019-12-31 06:28 | PDOC.FM ---
- Subjective Subjective: Patient complains of frontal headache, right arm pain and heaviness, and bilateral lower extremity weakness. She states these symptoms are unchanged from yesterday. She reports 1 episode of vomiting last pm, but denies nausea. No vision changes, chest pain, SOB, palpitations, abdominal pain and edema. She requests an allergy medication due to recent flare. She denies runny nose, cough and congestion. - Objective MAR Reviewed: Yes Vital Signs & Weight: Vital Signs (12 hours) Temp Pulse Resp BP BP BP BP 12/31/19 03:23 97.9 F 94 18 103/59 L 12/31/19 01:44 12/31/19 00:48 77 97/56 L 12/31/19 00:32 76 22 H 71/45 L 12/30/19 23:47 97.6 F 82 22 H 84/47 L 12/30/19 21:52 148/68 H 12/30/19 20:13 12/30/19 20:01 97.7 F 76 20 184/91 H 12/30/19 20:00 12/30/19 18:24 82 189/101 H Pulse Ox 12/31/19 03:23 98 12/31/19 01:44 100 12/31/19 00:48 12/31/19 00:32 100 12/30/19 23:47 100 12/30/19 21:52 12/30/19 20:13 98 12/30/19 20:01 98 12/30/19 20:00 98 12/30/19 18:24 Weight Weight 91.943 kg I&O: 12/29/19 12/30/19 12/31/19 06:59 06:59 06:59 Intake Total 1400 Balance 1400 Result Diagrams: 12/30/19 14:14 12/30/19 14:14 Phys Exam - Physical Examination Constitutional: NAD HEENT: moist MMs, sclera anicteric Neck: supple, full ROM Respiratory: no wheezing, clear to auscultation bilateral Cardiovascular: RRR, no significant murmur Gastrointestinal: soft, non-tender, positive bowel sounds Musculoskeletal: no edema, pulses present Neurological: non-focal, moves all 4 limbs Strength 5/5 Psychiatric: normal affect, A&O x 3 Skin: no rash Dx/Plan - Plan Plan: Hypertensive urgency BP elevated at 199/133 in ED, improved to 148/81 by admission. Vital signs otherwise stable. Reports hx HTN in past but has not been treated for 15 years. Daily headache and vision changes likely due to untreated chronic HTN. No evidence of end organ damage in workup. Trop neg. EKG NSR. BNP <10. HEART score: 4. -Continuously monitor on tele -Start amlodipine 10mg daily -Terazosin 1mg Q4H PRN for systolic BP > 160 until stress test completed, then change to labetalol 20mg Q4H PRN -Stress test in am. Currently NPO Bilateral lower extremity weakness likely 2/2 deconditoning Reports generalized leg weakness for past 3 weeks. Exam normal and appropriate for age. CT Brain showed nothing acute. ESR, CRP low, therefore inflammatory process unlikely. CT C-spine and L-spine showed degenerative changes but nothing severe or acute. TSH WNL. -PT/OT consult Right arm pain Reports R arm pain and feelings of heaviness without erythema or warmth in recent weeks. Increased risk of clots due to longstanding hx of PO estrogen therapy. -US Venous Doppler negative for DVT Hypothyroidism s/p thyroidectomy Patient reports recent change in Synthroid dosing, specifics unknown. TSH WNL. -Continue home Synthroid Anxiety Patient reports mild anxiety at baseline. PDMP confirmed current dosing. -Continue home Lorazepam 0.5mg in morning and afternoon -Continue home Lorazepam 2g at night Depression Patient reports chronic history of MDD with intermittent need for medication. -Monitor for symptoms Chronic estrogen therapy Patient reports an estimated 20 year history of taking post-menopausal PO estrogen therapy. Denies family hx breast cancer. -Begin taper of Premarin 0.45mg daily given high risk of complications with care home use Chronic diarrhea 2/2 partial colectomy -Continue home KCl 20mg daily Hiatal Hernia -Aware PCP: Dr. Saad Ghotra at [facility] Code: FULL DVT Ppx: Lovenox Dispo: Pending stress test results, PT/OT recs and further medical management Addendum - Attending - Attending Attestation Date/Time: 12/31/19 [id number] I personally evaluated the patient and discussed the management with Dr. Jefferson. I agree with the History, Examination, Assessment and Plan documented above with any addition or exceptions noted below.
[2019-12-31] MEDS: Lorazepam 0.5 MG TAB PO SCH ×2 (08:32→14:07)
[2019-12-31 08:35] LABS: Troponin I 0.014 ng/mL (< 0.028)
[2019-12-31] MEDS ORDERED: Amlodipine 5 MG TAB PO SCH ×2 (09:00→18:00)
[2019-12-31] MEDS ORDERED: Amlodipine 10 MG TAB PO SCH ×2 (09:00→18:00)
[2019-12-31] MEDS ORDERED: ADENOSINE 60 MG/20 ML VIAL ONE (09:21)
[2019-12-31 12:04] LABS: SARS-CoV-2 MS2 Positive; SARS-CoV-2 N Gene Negative; SARS-CoV-2 S Gene Negative; SARS-CoV-2 by NAA Not Detected (NotDetected); SARS-CoV-2 orf1ab Negative
--- NOTE | 2019-12-31 13:34 | NM ---
Nuclear medicine Cardiac myocardial perfusion SPECT Ejection fraction study Wall motion cine: DATE:12/31/2019 1:21 PM INDICATION: Chest pain history of hypertensive crisis TECHNIQUE: Number of days:1 Stress study: Technetium 99m-sestamibi (Cardiolite) dose:30.3 mCi FINDINGS: Cardiac (myocardial perfusion) SPECT No myocardial perfusion defect is demonstrated. Ejection fraction study Left ventricular EF = 69% Wall motion cine Normal wall motion and thickening IMPRESSION: Normal stress only myocardial perfusion evaluation. No myocardial perfusion defect identified.
[2019-12-31] MEDS: Potassium Chloride 20 MEQ TAB PO SCH (14:02)
[2019-12-31] MEDS: Enoxaparin Sodium 40 MG/0.4 ML SYRINGE SC SCH (14:03)
[2019-12-31] MEDS: Loratadine 10 MG TAB PO PRN (14:06)
[2019-12-31] MEDS: Simethicone Chewable 80 MG TAB PO PRN (14:06)
[2019-12-31] MEDS: Estrogens, Conjugated 0.3 MG TAB PO SCH (14:44)
[2019-12-31] MEDS ORDERED: Labetalol HCl 100 MG/20 ML VIAL SLOW IVP PRN (16:46)
[2019-12-31] MEDS: Lorazepam 1 MG TAB PO SCH (20:16)
[2020-01-01] MEDS: Levothyroxine Sodium 88 MCG TAB PO SCH (05:07)
[2020-01-01] MEDS: Acetaminophen 325 MG TAB PO PRN ×2 (05:21→12:24)
--- NOTE | 2020-01-01 05:52 | PDOC.FM ---
- Subjective Subjective: No acute overnight events. No new complaints this AM. Denies headache, chest pain, SOB, edema. Expresses concern about cost of medication, outpatient therapies. - Objective Vital Signs & Weight: Vital Signs (12 hours) Temp Pulse Resp BP BP Pulse Ox 01/01/20 04:00 98.0 F 80 23 H 142/75 H 99 01/01/20 01:07 98 12/31/19 20:00 98.5 F 85 16 140/63 98 Weight Admit Weight 91.989 kg Weight 91.172 kg I&O: 12/30/19 12/31/19 01/01/20 06:59 06:59 06:59 Intake Total 1400 1080 Output Total 1000 Balance 1400 80 Result Diagrams: 12/30/19 14:14 12/30/19 14:14 Phys Exam - Physical Examination Constitutional: NAD HEENT: moist MMs Respiratory: no wheezing, no rales, no rhonchi, clear to auscultation bilateral Cardiovascular: RRR, no significant murmur Gastrointestinal: soft, non-tender, positive bowel sounds Musculoskeletal: no edema Neurological: non-focal, moves all 4 limbs ambulating without difficulty, strength 5/5 in bilateral upper & lower ext Psychiatric: normal affect, A&O x 3 Skin: no rash Dx/Plan - Plan Plan: Hypertensive urgency BP elevated at 199/133 in ED, improved to 148/81 by admission. Vital signs otherwise stable. Reports hx HTN in past but has not been treated for 15 years. Daily headache and vision changes likely due to untreated chronic HTN. No evidence of end organ damage in workup. Trop neg. EKG NSR. BNP <10. HEART score: 4. Stress test negative 12/30. Blood pressure stable in 140s/70s on amlodipine. -Will increase to amlodipine 10 mg for better control of BP -labetalol 20mg Q4H PRN for SBP >160 Bilateral lower extremity weakness likely 2/2 deconditoning Reports generalized leg weakness for past 3 weeks. Exam normal and appropriate for age. CT Brain showed nothing acute. ESR, CRP low, therefore inflammatory process unlikely. CT C-spine and L-spine showed degenerative changes but nothing severe or acute. TSH WNL. -PT/OT consulted, appreciate recs -would benefit from HH on discharge, CM consulted Right arm pain Reports R arm pain and feelings of heaviness without erythema or warmth in recent weeks. Increased risk of clots due to longstanding hx of PO estrogen therapy. -US Venous Doppler negative for DVT Hypothyroidism s/p thyroidectomy Patient reports recent change in Synthroid dosing, specifics unknown. TSH WNL. -Continue home Synthroid Anxiety Patient reports mild anxiety at baseline. PDMP confirmed current dosing. -Continue home Lorazepam 0.5mg in morning and afternoon -Continue home Lorazepam 2g at night Depression Patient reports chronic history of MDD with intermittent need for medication. -Monitor for symptoms Chronic estrogen therapy Patient reports an estimated 20 year history of taking post-menopausal PO estrogen therapy. Denies family hx breast cancer. 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 Saad Ghotra at [facility] Code: FULL DVT Ppx: Lovenox Dispo: Likely DC to home with Addendum - Attending - Attending Attestation Date/Time: 01/01/20 3663 I personally evaluated the patient and discussed the management with Dr. Kaufman. I agree with the History, Examination, Assessment and Plan documented above with any addition or exceptions noted below.
[2020-01-01] MEDS: Potassium Chloride 20 MEQ TAB PO SCH (08:03)
[2020-01-01] MEDS: Estrogens, Conjugated 0.3 MG TAB PO SCH (08:03)
[2020-01-01] MEDS: Enoxaparin Sodium 40 MG/0.4 ML SYRINGE SC SCH (08:03)
[2020-01-01] MEDS: Lorazepam 0.5 MG TAB PO SCH ×2 (08:04→13:45)
[2020-01-01 12:12] VITALS: TEMP 97.7
[2020-01-01] MEDS: Loratadine 10 MG TAB PO PRN (12:25)
[2020-01-01 13:50] VITALS: BP 167/84
[2020-01-01] MEDS ORDERED: Amlodipine 10 MG TAB PO SCH (18:00)
--- NOTE | 2020-01-03 14:41 | DIS ---
DATE OF ADMISSION: 12/30/2019 DATE OF DISCHARGE: 01/01/2020 RESIDENT: Jacqueline Kaufman DO ADMITTING ATTENDING: Dr. El. DISCHARGE ATTENDING: Dr. El. CONSULT: None. PROCEDURES: CT brain, CT cervical spine, CT lumbar spine, nuclear stress test. PRIMARY DIAGNOSIS: Hypertensive urgency. SECONDARY DIAGNOSES: Deconditioning, hypothyroidism, anxiety, depression, chronic diarrhea, chronic estrogen therapy. DISCHARGE MEDICATIONS: 1. Potassium chloride 20 mEq p.o. daily. 2. Lorazepam 0.5 mg p.o. p.r.n. 3. tablet 16.2 mg p.o. t.i.d. 4. Cholestyramine one packet p.o. b.i.d. 5. Ascorbic acid 500 mg p.o. b.i.d. 6. Vitamin B one capsule p.o. daily. 7. Multivitamin one tablet p.o. daily. 8. Premarin 0.45 mg p.o. daily. 9. Lorazepam 2 mg p.o. at bedtime. 10. Levothyroxine 88 mcg one tablet p.o. daily. 11. Amlodipine 10 mg p.o. daily. DISCONTINUED MEDICATIONS: None. HOSPITAL COURSE: Ms. Garza is a 74-year-old female with past medical history of hypertension, hypothyroidism, anxiety, and depression, who presented to the ED with complaint of bilateral lower extremity weakness for the past three weeks. She is also complaining of arm heaviness and chest pain radiating to the right shoulder in the back, which was relieved with nitroglycerin in the ER. She was noted to be hypertensive with her initial blood pressure at 199/133. Of note, she does have a past medical history of hypertension, but has not been on any antihypertensive therapy for the past 15 years. Prior to admission, she has been having daily headaches and vision changes, which are presumed due to her untreated chronic hypertension. The patient underwent an extensive cardiac workup including troponins, EKG, and stress test, all of which were negative. Her blood pressure was initially treated with 5 mg of amlodipine with p.r.n. terazosin for systolic blood pressures over 160. However, with one dose of terazosin, she decreased her blood pressure in the 160s systolic to 80s systolic. This medication was discontinued. However, she was continued on amlodipine, which was increased to 10 mg daily for better control of her blood pressure. She also complained of bilateral lower extremity weakness throughout her admission. She was evaluated by PT and OT and aggressive OT therapy was recommended for her decreased functional mobility. She had multiple imaging studies during her admission due to this weakness, including CT of the brain, CT of the cervical spine, and CT of the lumbar spine, all of which were negative for any canal stenosis or acute finding. On admission, she also complained of some right upper extremity pain, DVT was ruled out with an ultrasound. With her blood pressure under better control and her negative cardiac workup and her symptoms of bilateral lower extremity weakness improving, the patient was discharged in stable condition to home with home health for further occupational therapy. DISPOSITION: Stable. DISCHARGE INSTRUCTIONS: 1. Location: Home. 2. Diet: Heart healthy. 3. Activity: As tolerated. 4. Followup: Follow up with PCP within one week. Job ID: [id number] [id number]
== END 2020-01-01 14:41 | disposition home health service (06) | DRG 305 ==
LOC: ERS 13:45 → 2NO 15:31
PROVIDERS: ADMIT Family Medicine; ATTEND Family Medicine
DX: I16.0 Hypertensive urgency (principal); Z20.828 Contact with and (suspected) exposure to other viral communicable diseases; F41.9 Anxiety disorder, unspecified; F32.9 Major depressive disorder, single episode, unspecified; I10 Essential (primary) hypertension; E89.0 Postprocedural hypothyroidism; K44.9 Diaphragmatic hernia without obstruction or gangrene; K52.89 Other specified noninfective gastroenteritis and colitis; R53.1 Weakness; M79.601 Pain in right arm; Z90.49 Acquired absence of other specified parts of digestive tract; Z88.0 Allergy status to penicillin; Z79.899 Other long term (current) drug therapy; Z79.890 Hormone replacement therapy; Z90.710 Acquired absence of both cervix and uterus; Z88.5 Allergy status to narcotic agent
CPT/HCPCS: 36415; 36416; 70450; 71045; 72125; 72131; 78452; 80053; 80061; 81003; 83036; 83690; 83735; 83880; 84443; 84484; 85025; 85652; 86140; 87635; 93005; 93017; A9500; J0153; J2405; U0003

== ENCOUNTER 2023-04-21 18:14 | Inpatient (IN) | payer MEDICARE, OTHER ==
[~2023-04-21 18:14] MED LIST: Iopamidol-370 76% 500 ML MDV (1 ML CHARGE) ONE
[2023-04-21] MEDS ORDERED: Morphine 4 MG/ML VIAL ONE ×2 (19:00→21:30)
[2023-04-21] MEDS ORDERED: Ondansetron PF 4 MG/2 ML Vial ONE (19:00)
[2023-04-21 19:08] LABS: #Monocytes 0.6 thou/uL (0.11-0.59); #Neutrophils 14.7 thou/uL (1.40-6.50); %Basophils 0.2 % (0.0-1.0); %Eosinophils 0.1 % (0.0-10.0); %Monocytes 3.3 % (0.0-10.0); Hematocrit 41.3 % (36.0-47.0); Hemoglobin 13.3 g/dL (12.0-16.0); Mean Corpuscular HGB CONC 32.2 g/dL (32.0-36.0); Mean Corpuscular Volume 83.9 fl (78.0-98.0); Mean Platelet Volume 10.8 fL (7.4-10.4); Platelet Count 233 10x3/uL (130-400); RBC Distribution Width 14.1 % (11.5-14.5); Red Blood Cell (RBC) Count 4.92 mill/uL (4.20-5.40)
[2023-04-21 19:36] LABS: ALT (SGPT) 24 U/L (8-55); AST (SGOT) 24 U/L (5-34); Albumin 4.7 g/dL (3.4-4.8); Alkaline Phosphatase 87 U/L (40-110); Anion Gap 15 mmol/L (10-20); BUN (Urea Nitrogen) 6 mg/dL (9.8-20.1); Bilirubin, Total 0.6 mg/dL (0.2-1.2); Calc. Creatinine Clearance 0 mL/min (70-130); Carbon Dioxide 27 mmol/L (23-31); Chloride 99 mmol/L (98-107); Estimated GFR 79; Globulin 3.9 g/dL (2.4-3.5); Glucose 124 mg/dL (83-110); Lipase 15 U/L (8-78); Potassium 3.4 mmol/L (3.5-5.1); Protein, Total 8.6 g/dL (5.8-8.1); Sodium 138 mmol/L (136-145)
[2023-04-21 19:40] LABS: Troponin I Less than 0.010 ng/mL (< 0.028)
[2023-04-21 20:57] LABS: SARS-CoV-2 NAA Rapid Test Not Detected (NotDetected)
[2023-04-21 22:10] LABS: Bacteria/HPF None Seen HPF (None Seen); Bilirubin Negative (Negative); Blood, Urine Negative (Negative); CAUTI Indications for Culture Alt mental st,lethar; Clarity Clear (Clear); Glucose, Urine (Dipstick) Normal (Negative); Ketone, Urine Negative (Negative); Leukocyte Negative Leu/uL (Negative); Nitrite Negative (Negative); Protein, Urine (Dipstick) Negative (Neg-Trace); RBC/HPF 0-3 HPF (0-3); Specific Gravity, Urine 1.019 (1.002-1.036); Squamous Epithelial 0-3 HPF (0-3); Urobilinogen Normal mg/dL (Less than 2); WBC/HPF 0-3 HPF (0-3); pH, Urine 7.5 (5.0-9.0)
[2023-04-21 22:12] LABS: Urine Culture Reflex No No
[2023-04-21 22:43] LABS: Lactic Acid 1.4 mmol/L (0.5-2.2)
[2023-04-21 23:50] VITALS: BMI 35.7
[2023-04-22] MEDS ORDERED: Ondansetron PF 4 MG/2 ML Vial IVP PRN ×2 (03:41→06:24)
[2023-04-22] MEDS ORDERED: Ondansetron ODT 4 MG TAB PO PRN ×2 (03:41→06:24)
[2023-04-22 06:13] LABS: #Neutrophils 11.5 thou/uL (1.40-6.50); %Basophils 0.1 % (0.0-1.0); %Eosinophils 0.1 % (0.0-10.0); %Monocytes 6.6 % (0.0-10.0); %Neutrophils 73.9 % (42.0-75.0); Hematocrit 41.6 % (36.0-47.0); Hemoglobin 12.9 g/dL (12.0-16.0); Mean Corpuscular Hemoglobin 26.3 pg (27.0-31.0); Mean Corpuscular Volume 84.7 fl (78.0-98.0); Mean Platelet Volume 10.7 fL (7.4-10.4); Platelet Count 253 10x3/uL (130-400); RBC Distribution Width 14.3 % (11.5-14.5); Red Blood Cell (RBC) Count 4.91 mill/uL (4.20-5.40); White Blood Cell (WBC) Count 15.5 10x3/uL (4.8-10.8)
[2023-04-22] MEDS ORDERED: Morphine 4 MG/ML VIAL SLOW IVP PRN (06:24)
[2023-04-22] MEDS ORDERED: Morphine 2 MG/ML VIAL SLOW IVP PRN (06:24)
[2023-04-22] MEDS ORDERED: hydrALAZINE 20 MG/ML VIAL SLOW IVP PRN (06:24)
[2023-04-22] MEDS ORDERED: Non-Formulary Item 1 EACH (Lorazepam [Lorazepam] 2 MG Tablet) PO PRN (06:28)
[2023-04-22] MEDS ORDERED: Ketorolac Tromethamine 30 MG (1 mL) VIAL IVP SCH (06:30)
[2023-04-22] MEDS ORDERED: Lactated Ringer's 1,000 ML IV SCH (06:30)
[2023-04-22] MEDS ORDERED: Potassium Chloride 20 MEQ in Lactated Ringer's 1,000 ML IV SCH (06:30)
[2023-04-22 06:33] LABS: ALT (SGPT) 20 U/L (8-55); AST (SGOT) 21 U/L (5-34); Albumin 4.2 g/dL (3.4-4.8); Alkaline Phosphatase 80 U/L (40-110); Anion Gap 12 mmol/L (10-20); BUN (Urea Nitrogen) 6 mg/dL (9.8-20.1); Bilirubin, Total 0.5 mg/dL (0.2-1.2); Calc. Creatinine Clearance 91 mL/min (70-130); Calcium 9.2 mg/dL (7.8-10.44); Carbon Dioxide 27 mmol/L (23-31); Chloride 102 mmol/L (98-107); Estimated GFR 82; Globulin 3.5 g/dL (2.4-3.5); Glucose 111 mg/dL (83-110); Potassium 3.6 mmol/L (3.5-5.1); Protein, Total 7.7 g/dL (5.8-8.1); Sodium 137 mmol/L (136-145)
[2023-04-22] MEDS ORDERED: Ketorolac Tromethamine 30 MG (1 mL) VIAL ONE (07:16)
[2023-04-22] MEDS ORDERED: MD-Gastroview 120 ML BOT ONE (07:18)
[2023-04-22] MEDS ORDERED: Pantoprazole 40 MG VIAL ONE (08:03)
[2023-04-22] MEDS ORDERED: hydrALAZINE 20 MG/ML VIAL ONE (08:03)
[2023-04-22] MEDS ORDERED: Lorazepam 1 MG TAB ONE ×2 (08:03→12:32)
[2023-04-22] MEDS ORDERED: Hydrocortisone 2.5% Cream 30 GM TUBE TOP SCH (09:00)
[2023-04-22] MEDS ORDERED: Pantoprazole 40 MG VIAL IVP SCH (09:00)
[2023-04-22] MEDS: Lorazepam 0.5 MG TAB PO SCH ×2 (11:44→12:36)
[2023-04-22] MEDS ORDERED: Ketorolac Tromethamine 30 MG (1 mL) VIAL IVP PRN (13:00)
[2023-04-22] MEDS ORDERED: SCOP PO SCH (15:00)
[2023-04-22] MEDS ORDERED: HYOSCY PO SCH (15:00)
[2023-04-22] MEDS ORDERED: ATROPINE PO SCH (15:00)
[2023-04-22] MEDS ORDERED: PHENOBARB PO SCH (15:00)
[2023-04-22 15:17] VITALS: BP 170/86; TEMP 98.4
[2023-04-22] MEDS ORDERED: Amlodipine 10 MG TAB PO SCH (18:00)
[2023-04-22] MEDS ORDERED: Enoxaparin 40 MG (0.4 mL) SYRINGE SC SCH (21:00)
[2023-04-23] MEDS ORDERED: Levothyroxine Sodium 88 MCG TAB PO SCH (06:00)
[2023-04-23] MEDS ORDERED: Multivit, Therapeutic 1 TAB PO SCH (09:00)
[2023-04-23] MEDS ORDERED: Estrogens, Conjugated 0.3 MG TAB PO SCH (09:00)
[2023-04-23] MEDS ORDERED: Multivitamin w/Zinc Stress 1 TAB PO SCH (09:00)
== END 2023-04-22 16:10 | disposition home or self-care (01) | DRG 390 ==
LOC: ERS 18:14 → ERHOLD 22:23
PROVIDERS: ADMIT Specialist; ATTEND Specialist
PROC: 0D9670Z Drainage of Stomach with Drainage Device, Via Natural or Artificial Opening (ICD-10-PCS; principal; 2023-04-21)
PROC: 3E0G76Z Introduction of Nutritional Substance into Upper GI, Via Natural or Artificial Opening (ICD-10-PCS; 2023-04-21)
DX: K56.609 Unspecified intestinal obstruction, unspecified as to partial versus complete obstruction (principal); I10 Essential (primary) hypertension; F41.9 Anxiety disorder, unspecified; R26.81 Unsteadiness on feet; Z88.5 Allergy status to narcotic agent; Z88.0 Allergy status to penicillin; Z79.899 Other long term (current) drug therapy; Z90.49 Acquired absence of other specified parts of digestive tract; Z90.722 Acquired absence of ovaries, bilateral; Z90.89 Acquired absence of other organs; Z11.52 Encounter for screening for COVID-19
CPT/HCPCS: 36415; 71045; 74018; 74177; 74250; 80053; 81001; 83605; 83690; 83880; 84484; 85025; 87040; 93005; C9113; J0360; J1885; J2270; J2405; J3480; J7120; Q9963; Q9967